=== PATIENT | male | born 1995 | race African-American/Black ===

== ENCOUNTER 2017-01-08 16:22 | Emergency (ER) | payer MEDICAID ==
[~2017-01-08] VITALS: Ht 177.8 cm; Wt 62.3 kg
[2017-01-08 16:38] VITALS: BP 112/59
[2017-01-08] MEDS ORDERED: DiphenhydrAMINE HCL 25 MG CAPSULE PO ONE (17:00)
== END 2017-01-08 17:27 | disposition home or self-care (01) ==
LOC: EMS 16:24
DX: B09 Unspecified viral infection characterized by skin and mucous membrane lesions (principal); N60.01 Solitary cyst of right breast; F12.90 Cannabis use, unspecified, uncomplicated; F17.210 Nicotine dependence, cigarettes, uncomplicated
CPT/HCPCS: 99283

== ENCOUNTER 2017-05-02 13:39 | Emergency (ER) | payer MEDICAID ==
[~2017-05-02] VITALS: Ht 177.8 cm; Wt 62.7 kg
[2017-05-02 13:50] VITALS: BP 118/72
== END 2017-05-02 17:01 | disposition left against medical advice (07) ==
LOC: EMS 13:40
DX: Z53.21 Procedure and treatment not carried out due to patient leaving prior to being seen by health care provider (principal)

== ENCOUNTER 2017-05-06 19:09 | Emergency (ER) | payer MEDICAID ==
[~2017-05-06] VITALS: Ht 177.8 cm; Wt 62.7 kg
[2017-05-06] MEDS ORDERED: EMTR1TAB15 PO (19:21)
[2017-05-06] MEDS ORDERED: POVIDONE-IODINE 10% 15 ML SOLUTION UD TP ONE (20:45)
[2017-05-06] MEDS ORDERED: HYDROCODONE/ACETAMINOPHEN 5-325 MG TABLET PO ONE (20:45)
[2017-05-06] MEDS ORDERED: LIDOCAINE HCL 1% 10 ML VIAL INJ ONE (20:45)
[2017-05-06 22:00] VITALS: BP 122/72
== END 2017-05-06 22:12 | disposition home or self-care (01) ==
LOC: EMS 19:10
DX: L02.31 Cutaneous abscess of buttock (principal); M41.9 Scoliosis, unspecified; F17.210 Nicotine dependence, cigarettes, uncomplicated; Z79.899 Other long term (current) drug therapy
CPT/HCPCS: 10060; 99283; J3490